=== PATIENT | male | born 1965 | race Caucasian/White ===

== ENCOUNTER 2016-08-23 10:36 | Emergency (ER) | payer SELFPAY ==
--- NOTE | 2016-08-29 15:59 | ER ---
ADMIT: 08/23/2016 RM/LOC: ER [facility] MR#: [id number] [address] [id number] [address] [place] [address] Emergency Room Report SEX: M AGE: 51 : 1965 DATE: 08/23/2016 ADDENDUM: This patient comes into the ER because for the last 3 days, he has had episodes where he has severe pain in his left back area. When he has it, he becomes very nauseated, will vomit and then after an hour or so, the pain goes away and then he is pain free. He thinks that may be it is affecting how he urinates, does not notice any blood in his urine. No vomiting, diarrhea, or fever. Currently, his pain is moderate. Prior to arrival to the ER, it was severe. On physical exam, he points the area of pain on the left flank area. He is slightly tender. Abdomen is soft, nontender on palpation. CBC, BMP, and urinalysis were normal. This sounds very suspicious for a kidney stone. The patient was concerned, he had no insurance and really did not want me to do a CAT scan. I felt it was reasonable to treat him symptomatically. We talked about signs and symptoms he needs to watch for. I wrote a prescription for [facility]. He needs to strain his urine and push fluids if he develops a fever. The pain is not getting better with pain medicine, he should return to the ER. Otherwise, he will need to follow up with Urology. Please see my T-sheet. MARIE Chowdhury / Cleveland Obrien MD / jemima JOB #: [id number] CC: Cleveland Obrien MD, Attending Physician Shukri J Jaimes, MD, Family Physician Enrique Hartmann MD
== END 2016-08-23 13:00 | disposition home or self-care (01) ==
LOC: ER 10:36
DX: R10.9 Unspecified abdominal pain (principal); Z98.890 Other specified postprocedural states; Z79.899 Other long term (current) drug therapy